=== PATIENT | male | born 1935 | race Caucasian/White ===

== ENCOUNTER 2019-06-08 21:45 | Emergency (ER) | payer OTHER ==
[~2019-06-08] VITALS: Ht 175.3 cm; Wt 77.1 kg
[2019-06-08] MEDS ORDERED: NACL 0.9% 1,000 ML IV ONE (21:58)
[2019-06-08 22:10] VITALS: BP_SYST 122
--- NOTE | 2019-06-08 22:10 | NUR ---
Patient to ER bed 02 to gown for evaluation. Side rails up. Report given to ARACELY Shea.
--- NOTE | 2019-06-08 22:29 | NUR ---
ER Dr. Bedolla at bedside examining patient.
--- NOTE | 2019-06-08 22:30 | NUR ---
Pt was brought in by daughter complaining of altered level of consciousness. Pt has been confused since October. Per daughter, pt eats his own feces and drinks his own urine. Pt escapes home through window. Pt has dementia and since his in October, pt's been more confused. Noted abrasions to bilateral upper extremities, per daughter, it's due to patient climbing out of window. Pt is unable to get home health, hospice, psych eval or any [facility] facility. No other injuries/complaints per patient or noted.
--- NOTE | 2019-06-08 22:40 | NUR ---
Patient went to CT in stable condition.
--- NOTE | 2019-06-08 22:48 | NUR ---
patient returned from CT in stable condition.
[2019-06-08] MEDS ORDERED: FURO-150 PO (22:53)
--- NOTE | 2019-06-08 22:54 | NUR ---
Medication reconciliation completed with information provided by daughter at bedside. Any prior medication reconciliation on file was reviewed and corrected.
[2019-06-08 23:02] LABS: BASOPHILS # (AUTO) 0.1 K/uL (0.0-0.2); BASOPHILS % (AUTO) 1.4 % (0.0-2.0); EOSINOPHILS # (AUTO) 0.5 K/uL (0.0-0.4); EOSINOPHILS % (AUTO) 9.9 % (0.0-4.0); HEMATOCRIT 31.4 % (36-54); HEMOGLOBIN 10.6 g/dL (14.0-18.0); LYMPHOCYTES # (AUTO) 0.9 K/uL (1.0-5.5); LYMPHOCYTES % (AUTO) 17.8 % (20.5-51.5); MEAN CORPUSCULAR HEMOGLOBIN 33 pg (27-31); MEAN CORPUSCULAR HGB CONC 34 % (32-36); MEAN CORPUSCULAR VOLUME 97 fL (79.0-98.0); MONOCYTES # (AUTO) 0.3 K/uL (0.0-1.0); MONOCYTES % (AUTO) 6.3 % (1.7-9.3); NEUTROPHILS # (AUTO) 3.2 K/uL (1.8-7.7); NEUTROPHILS % (AUTO) 64.6 % (40.0-70.0); PLATELET COUNT (AUTO) 144 K/uL (130-430); RED BLOOD CELL COUNT(AUTO) 3.24 MIL/uL (4.2-6.2); RED CELL DISTRIBUTION WIDTH 17.3 % (9.0-15.0)
--- NOTE | 2019-06-08 23:06 | NUR ---
IV to left forearm infiltrated. D/C IV, elevated left arm and placed warm compress.
--- NOTE | 2019-06-08 23:07 | NUR ---
Xray at bedside, pt tolerated well.
[2019-06-08 23:22] LABS: ANION GAP 3 (5-15); CALCIUM 9.2 mg/dL (8.4-11.0); CHLORIDE 103 mmol/L (98-107); GLUCOSE 99 mg/dL (70-99); POTASSIUM 3.7 mmol/L (3.5-5.1); SODIUM SERUM 135 mmol/L (136-145); UREA NITROGEN, BLOOD 25 mg/dL (8-21)
--- NOTE | 2019-06-08 23:22 | NUR ---
attempted in and out catheter with coude and 14f cath, unable to advance. Dr. Bedolla made aware.
[2019-06-08 23:27] LABS: ALANINE AMINOTRANSFERASE 8 U/L (12-78); ALBUMIN 3.1 g/dL (3.4-4.8); ASPARTATE AMINOTRANSFERASE 22 U/L (10-37); LIPASE 124 U/L (73-393); TOTAL BILIRUBIN 0.7 mg/dL (0.0-1.0)
[2019-06-08 23:30] LABS: PROTHROMBIN TIME 10.7 SECS (9.5-12.5)
[2019-06-08 23:36] LABS: ALCOHOL, BLOOD < 3 mg/dL (<10)
[2019-06-08] MEDS ORDERED: LORazepam 2 MG/ML VIAL (FOR ER USE) IVP ONE (23:45)
[2019-06-08] MEDS: DIPHENHYDRAMINE INJ 50 MG/ML VIAL IVP ONE (23:56)
[2019-06-09] MEDS: DIPHENHYDRAMINE INJ 50 MG/ML VIAL IVP ONE (00:04)
--- NOTE | 2019-06-09 00:33 | NUR ---
Dr. Bedolla on the phone speaking with Dr. Kinsey in regards to patient status.
--- NOTE | 2019-06-09 00:44 | NUR ---
patient was moved to bed 1. placed on library monitor.
[2019-06-09] MEDS ORDERED: DIPHENHYDRAMINE INJ 50 MG/ML VIAL IVP ONE ×2 (01:00→04:00)
--- NOTE | 2019-06-09 01:16 | NUR ---
Pt sleeping comfortably in hospital bed. No acute distress, will continue to monitor.
--- NOTE | 2019-06-09 02:33 | NUR ---
Pt sleeping comfortably in hospital bed. No acute distress, will continue to monitor.
--- NOTE | 2019-06-09 03:56 | NUR ---
Verbal order received from Dr. Bedolla to medicate patient with Benadryl 25mg IVP due to patient getting out of bed.
[2019-06-09] MEDS ORDERED: LORazepam 2 MG/ML VIAL (FOR ER USE) IVP ONE (04:45)
--- NOTE | 2019-06-09 05:05 | NUR ---
Called daughter, Claire, and updated her on patient's transfer status.
[2019-06-09 05:15] VITALS: BP_SYST 147
--- NOTE | 2019-06-09 05:16 | NUR ---
Patient to be transferred to [facility]. Is being transferred due to higher level of care. Receiving facility has accepting physician and available space. ER physician has signed transfer form. Patient or responsible republican has agreed to transfer and signed form. Patient belongings inventoried and will be sent with patient. Copy of nursing notes, lab reports, EKG, Physicians Orders and X-rays to be sent with patient. Report called to at receiving facility. Receiving physician is Dr. Pepper. [facility] has been called for transfer. VSS
== END 2019-06-09 05:15 | disposition short-term general hospital (02) ==
LOC: SED 21:45
DX: R41.82 Altered mental status, unspecified (principal); I62.03 Nontraumatic chronic subdural hemorrhage; I48.91 Unspecified atrial fibrillation; R62.7 Adult failure to thrive; Z68.25 Body mass index [BMI] 25.0-25.9, adult
CPT/HCPCS: 36415; 70450; 71045; 80053; 83605; 83690; 83880; 84484; 85025; 85610; 85730; 87040; 93005; 96361; 96374; 96375; 96376; 99285; G0481; G0482; J1200; J2060; J7030